=== PATIENT | male | born 1970 | race Caucasian/White ===

== ENCOUNTER 2017-08-18 19:44 | Emergency (ER) | payer MEDICAID, OTHER ==
[~2017-08-18] VITALS: Ht 175.3 cm; Wt 82.0 kg
[2017-08-18 22:43] VITALS: BP 128/74
== END 2017-08-18 22:45 | disposition home or self-care (01) ==
LOC: ED 22:37
DX: F10.220 Alcohol dependence with intoxication, uncomplicated (principal); M54.9 Dorsalgia, unspecified; G89.29 Other chronic pain
CPT/HCPCS: 99283

== ENCOUNTER 2020-01-17 09:47 | Emergency (ER) | payer MEDICAID ==
[~2020-01-17] VITALS: Ht 175.3 cm; Wt 90.9 kg
[2020-01-17] MEDS ORDERED: ALBUTEROL/IPRATROPIUM 2.5MG/0.5MG, 3 ML ONE (10:25)
[2020-01-17] MEDS ORDERED: ALBUTEROL/IPRATROPIUM 2.5MG/0.5MG, 3 ML NPPB ONE (10:30)
--- NOTE | 2020-01-17 10:45 | NUR ---
RA O2 SAT OBTAINED POST SVN AT 84-88%. PT PLACED BACK ON 2L 02.
--- NOTE | 2020-01-17 11:55 | NUR ---
PT RESTING WITH EYES CLOSED. 02 REMOVED FOR RA SAT.
--- NOTE | 2020-01-17 13:00 | NUR ---
MEAL TRAY PROVIDED. O2 REMOVED FOR RA SAT.
--- NOTE | 2020-01-17 13:15 | NUR ---
PT'S 02 SAT AT REST 83-87%. PT PLACED ON 2L O2 VIA NC. PROVIDER NOTIFIED.
[2020-01-17 13:59] VITALS: BP 120/65
--- NOTE | 2020-01-17 14:05 | NUR ---
PT AMBULATED HALLWAY'S FOR APPROX 5 MIN. PT ABLE TO MAINTAIN >90% O2 SAT WITH AMBULATION. PT WISHES TO BE DC'D.
--- NOTE | 2020-01-17 14:20 | NUR ---
PT MEDICATED PER OCT. PT TO DC DESK WITH A STEADY GAIT.
== END 2020-01-17 14:27 | disposition home or self-care (01) ==
LOC: ED 13:28
DX: J44.1 Chronic obstructive pulmonary disease with (acute) exacerbation (principal); F10.129 Alcohol abuse with intoxication, unspecified; F17.200 Nicotine dependence, unspecified, uncomplicated; Y90.9 Presence of alcohol in blood, level not specified
CPT/HCPCS: 71045; 94640; 99283; J7512

== ENCOUNTER 2020-03-23 12:18 | Emergency (ER) | payer MEDICAID ==
[~2020-03-23] VITALS: Ht 180.3 cm; Wt 82.9 kg
--- NOTE | 2020-03-23 12:52 | NUR ---
PATIENT COMES INTO HOSPITAL WITH C/O OF SOB, RUNNY NOSE, N/V/D, AND CHILLS X5 DAYS. % ON RA, HR O2 SATURATION 97% ON RA, TEMP OF 98.5 ORAL. PATIENT HAS NOT EATEN IN 2 DAYS. A&OX4, PATIENT IS SHAKY, CLAMMY AND FLUSHED. PATIENT C/O OF SLIGHT WAGNER AND MUSCLE SPASM IN CHEST. Addendum: 03/23/20 at 1303 by [email or web address] 95% on RA. Addendum: 03/23/20 at 1304 by [email or web address] PATIENT HAS HX OF ETOH, PATIENT STATES LAST DRINK WAS LAST NIGHT, AND IT WAS "1 BEER."
--- NOTE | 2020-03-23 13:20 | NUR ---
ERMD AT BEDSIDE FOR EVALUATION.
[2020-03-23 13:58] VITALS: BP 159/99
--- NOTE | 2020-03-23 14:17 | NUR ---
Patient given discharge instructions and they have confirmed that they understand the instructions. Patient ambulatory with steady gait.
== END 2020-03-23 14:18 | disposition home or self-care (01) ==
LOC: ED 13:30
DX: J20.9 Acute bronchitis, unspecified (principal); Z20.828 Contact with and (suspected) exposure to other viral communicable diseases; J01.01 Acute recurrent maxillary sinusitis; R50.9 Fever, unspecified; R05 Cough; R06.02 Shortness of breath; R11.2 Nausea with vomiting, unspecified; J44.9 Chronic obstructive pulmonary disease, unspecified
CPT/HCPCS: 36415; 87635; 99283

== ENCOUNTER 2021-01-10 15:20 | Emergency (ER) | payer MEDICAID ==
[~2021-01-10] VITALS: Ht 180.3 cm; Wt 91.2 kg
[2021-01-10] MEDS ORDERED: ONDANSETRON 2MG/ML, 2ML ONE (16:56)
[2021-01-10] MEDS ORDERED: SODIUM CHLORIDE FLUSH 10ML SYR IVF ONE (17:00)
[2021-01-10] MEDS ORDERED: SODIUM CHLORIDE 0.9% 1,000ML IVBOLUS ONE (17:00)
[2021-01-10] MEDS ORDERED: ONDANSETRON 2MG/ML, 2ML IVPush ONE (17:00)
[2021-01-10 17:08] LABS: BASOPHILS % (AUTO) 1 % (0-1); EOSINOPHILS % (AUTO) 1 % (1-7); LYMPHOCYTES % (AUTO) 43 % (22-44); MD NO; MEAN CORPUSCULAR HEMOGLOBIN 33.9 pg (27.5-34.5); MEAN CORPUSCULAR HGB CONC 35.3 g/dL (33.2-36.2); MONOCYTES % (AUTO) 10 % (2-9); NEUTROPHILS % (AUTO) 45 % (42-75); PLATELET COUNT 201 x10^3/uL (130-400); RED BLOOD COUNT 4.55 x10^6/uL (4.38-5.82); RED CELL DISTRIBUTION WIDTH 15.2 % (9.4-14.8)
[2021-01-10 17:17] LABS: ALBUMIN 3.8 g/dL (3.4-5.0); ANION GAP 11 mmol/L (5-15); CALCIUM 8.2 mg/dL (8.5-10.1); CHLORIDE 108 mmol/L (98-107)
[2021-01-10 17:21] LABS: ALANINE AMINOTRANSFERASE 59 U/L (12-78); ALKALINE PHOSPHATASE 77 U/L (45-117); BILIRUBIN,TOTAL 0.2 mg/dL (0.2-1.0); CREATININE 0.94 mg/dL (0.7-1.3); TOTAL PROTEIN 7.2 g/dL (6.4-8.2)
[2021-01-10 18:15] VITALS: BP 106/69
== END 2021-01-10 18:17 | disposition home or self-care (01) ==
LOC: ED 18:09
DX: S09.90XA Unspecified injury of head, initial encounter (principal); F07.81 Postconcussional syndrome; R11.2 Nausea with vomiting, unspecified; R42 Dizziness and giddiness; J44.9 Chronic obstructive pulmonary disease, unspecified; R00.0 Tachycardia, unspecified; W01.0XXA Fall on same level from slipping, tripping and stumbling without subsequent striking against object, initial encounter; Y93.89 Activity, other specified; Y92.410 Unspecified street and highway as the place of occurrence of the external cause; Y99.8 Other external cause status
CPT/HCPCS: 36415; 70450; 80053; 85025; 93005; 96361; 96374; 99285; J2405; J7030